=== PATIENT | male | born 1935 | race Hispanic/Latino ===

== ENCOUNTER 2018-03-16 17:15 | Observation (INO) | payer OTHER ==
[~2018-03-16] VITALS: Ht 175.3 cm; Wt 72.5 kg
[~2018-03-16 17:15] MED LIST: AMLO-128 PO; FENO145T37 PO; GLIM4TAB3 PO; LOVA40TA2 PO; OMEP20CA10 PO; SITA1TAB6 PO
[2018-03-16] MEDS ORDERED: ONDANSETRON HCL 4 MG/2 ML VIAL ONE (18:17)
[2018-03-16] MEDS ORDERED: MORPHINE SULFATE 4 MG/1ML SYG ONE (18:17)
[2018-03-16] MEDS ORDERED: SODIUM CHLORIDE 0.9% 1000ML 1,000 ML IV ONE ×3 (18:17→23:12)
[2018-03-16 18:26] LABS: BASOPHILS % (AUTO) 0.6 % (0.0-5.0); EOSINOPHILS % (AUTO) 0.4 % (0.0-8.0); LYMPHOCYTES % (AUTO) 9.9 % (21.0-51.0); MEAN CORPUSCULAR HEMOGLOBIN 30.3 pg (27.0-33.0); MEAN CORPUSCULAR HGB CONC 33.3 g/dL (32.0-36.0); MEAN CORPUSCULAR VOLUME 91.1 fL (79-99); MONOCYTES % (AUTO) 5.6 % (3.0-13.0); NEUTROPHILS % (AUTO) 83.5 % (40.0-77.0); PLATELET COUNT (AUTO) 193 K/uL (130-400); RED BLOOD CELL COUNT(AUTO) 5.38 MIL/uL (4.50-6.20); RED CELL DISTRIBUTION WIDTH 13.3 % (11.0-15.5); WHITE BLOOD COUNT (AUTO) 10.9 K/uL (4.8-10.8)
[2018-03-16] MEDS ORDERED: LIDOCAINE HCL 2% VISCOUS 15 ML UDCUP ONE (18:30)
[2018-03-16] MEDS ORDERED: MAG HYDROX/AL HYDROX/SIMETH ES 30 ML SUSP UDCUP ONE (18:30)
[2018-03-16 18:32] LABS: APPEARANCE,URINE Cloudy (CLEAR); BILIRUBIN,URINE Negative (NEGATIVE); COLOR,URINE Yellow (YELLOW); GLUCOSE, URINE (UA) >=1000 mg/dL (NEGATIVE); KETONES,URINE Trace mg/dL (NEGATIVE); LEUKOCYTE ESTERASE ,URINE Negative (NEGATIVE); NITRATE,URINE Negative (NEGATIVE); OCCULT BLOOD,URINE Negative (NEGATIVE); PROTEIN,URINE Negative (NEGATIVE)
[2018-03-16 18:42] LABS: ALBUMIN 4.1 g/dL (3.5-5.0); BILIRUBIN,TOTAL 2.3 mg/dL (0.2-1.0); CREATININE 1.8 mg/dL (0.5-1.5); POTASSIUM 4.6 mmol/L (3.5-5.1); TOTAL PROTEIN, SERUM 7.6 g/dL (6.0-8.3)
[2018-03-16 19:06] LABS: SQUAMOUS EPITHELIAL CELL,UR 30-50 /HPF (0-2)
[2018-03-16 19:07] LABS: HYALINE CASTS, URINE 0-1 /LPF (0-1 /LPF)
[2018-03-16 19:13] LABS: MUCUS,URINE Rare LPF (None Seen)
[2018-03-16 19:15] LABS: BACTERIA,URINE Few /HPF (None Seen)
[2018-03-16 19:16] LABS: RBC,URINE 0-1 /HPF (0-1); WBC,URINE 0-1 /HPF (0-1)
[2018-03-16] MEDS ORDERED: CEFTRIAXONE SODIUM 1 GM ONE (19:26)
[2018-03-16] MEDS ORDERED: INSULIN HUMULIN R 100 UNIT/ML 3ML ONE (19:27)
[2018-03-16] MEDS ORDERED: ONDANSETRON HCL 4 MG/2 ML VIAL IVP PRN (21:00)
[2018-03-16] MEDS: SODIUM CHLORIDE 0.9% 1000ML 1,000 ML IV SCH (21:00)
[2018-03-16] MEDS ORDERED: HYDRALAZINE HCL 20 MG/ML VIAL IV PRN (21:00)
[2018-03-16] MEDS ORDERED: LEVOFLOXACIN 500 MG/D5W 100 ML 100 ML IV ONE (21:00)
[2018-03-16] MEDS ORDERED: ACETAMINOPHEN 325 MG TAB PO PRN (21:00)
[2018-03-16] MEDS ORDERED: DIPHENOXYLATE HCL/ATROPINE 2.5/0.025 MG TAB PO PRN (21:00)
[2018-03-16] MEDS ORDERED: LEVOFLOXACIN 500 MG/D5W 100 ML 100 ML ONE (23:12)
--- NOTE | 2018-03-17 00:40 | NUR ---
Admission note: Report received from Sandy Peña RN. Admitted pt. to room per stretcher under the service of Dr. Decker. Placed in bed comfortably. Pt. fully awake and responsive. AOX3. Daughter stayed with the patient at bedside. Orientation to room and used of call light given. Also, policies and procedures explained. Verbalized understanding. VS checked and recorded. Assessment done. Denies feeling of discomfort. Pt. verbalized with a smile " i feel better now." Has an IVF NS 1L at 100 ml/hr to RAC with #20 gauge - patent and intact. Telemetry attached with NSR 70's. Orders carried out. Monitored and observed for any unusualities. Distress not noted.
[2018-03-17 00:46] VITALS: BP 131/70
[2018-03-17] MEDS: METRONIDAZOLE 500MG/100ML BAG 100 ML IVPB SCH ×4 (01:09→21:35)
[2018-03-17] MEDS ORDERED: CHOL200013 PO (01:51)
[2018-03-17] MEDS ORDERED: FINA5TAB41 PO (02:00)
[2018-03-17] MEDS ORDERED: DONE5TAB33 PO (02:00)
[2018-03-17] MEDS ORDERED: FLUT16H NS (02:00)
[2018-03-17] MEDS ORDERED: GLUCAGON 1MG KIT 1 MG ML IM PRN (02:15)
[2018-03-17] MEDS ORDERED: DEXTROSE 50%-WATER 50 ML DISP.SYRIN IV PRN (02:15)
[2018-03-17 03:22] VITALS: BP 107/53
[2018-03-17] MEDS: INSULIN HUMULIN R 100 UNIT/ML 3ML SQ SCH ×4 (06:14→21:41)
[2018-03-17 07:46] VITALS: BP 102/59
[2018-03-17] MEDS: FAMOTIDINE/PF 20 MG/2 ML VIAL IV SCH (10:10)
[2018-03-17] MEDS: ENOXAPARIN SODIUM 30 MG/0.3 ML SQ SCH (10:12)
[2018-03-17] MEDS: SODIUM CHLORIDE 0.9% 1000ML 1,000 ML IV SCH ×2 (10:13→17:00)
[2018-03-17 12:00] VITALS: BP 104/60
[2018-03-17] MEDS: FLUTICASONE PROPIONATE 50MCG/SPRAY 16 GM BOTTLE NS SCH ×2 (12:00→14:11)
--- NOTE | 2018-03-17 13:05 | NUR ---
DCP CM met with pt and spouse discussed dc plans. Pt is independent prior to admission, lives at home with spouse. Has a shower chair at home. Denies any other equipments/services. Offered possible short term placement, pt and spouse declined at this time, willing to reconsider if MD recommends and if it is necessary, prefers to go back home. Daughter able to assist with transportation and needs as necessary. Dc plan to home once stable. CM to cont to follow up. Addendum: 03/17/18 at 1307 by ANABELLE BLEDSOE LVN CM Amended: Links added.
--- NOTE | 2018-03-17 15:59 | NUR ---
Nutrition intervention: Nutrition notification for hyperglycemia and dehydration. Pt currently on clear liquid diet, advance as tolerated, Pt tolerating clear liquids. Pt with no nutrition concerns with n/v/d, chewing or swallowing difficulties. Pt's glucose at admission at 639. RD provided pt with printed materials on DM diet. Printed materials reviewed. Pt states he eats what he cans, financially, RD advised pt to stop drinking soda and juice. Recommendations: Advance diet to CCD 75gm as tolerated. Consult RD if additional nutrition concerns arise. Addendum: 03/17/18 at [address] RD Amended: Links added.
[2018-03-17 16:00] VITALS: BP 124/70
[2018-03-17 20:00] VITALS: BP 133/70
[2018-03-17] MEDS ORDERED: DONEPEZIL HCL 5 MG TAB PO SCH (21:00)
[2018-03-17] MEDS ORDERED: LEVOFLOXACIN 250 MG/D5W 50ML 50 ML IVPB SCH (21:00)
[2018-03-18] VITALS: BP 133/62
[2018-03-18] MEDS: SODIUM CHLORIDE 0.9% 1000ML 1,000 ML IV SCH (03:55)
[2018-03-18 04:00] VITALS: BP 143/77
[2018-03-18 04:51] LABS: HEMATOCRIT 39.4 % (42-54); MEAN CORPUSCULAR HEMOGLOBIN 30.8 pg (27.0-33.0); MEAN CORPUSCULAR HGB CONC 34.6 g/dL (32.0-36.0); MEAN CORPUSCULAR VOLUME 89.2 fL (79-99); NUCLEATED RED BLOOD CELLS 0.1 % (0.0-0.19); PLATELET COUNT (AUTO) 140 K/uL (130-400); RED BLOOD CELL COUNT(AUTO) 4.41 MIL/uL (4.50-6.20); RED CELL DISTRIBUTION WIDTH 13.4 % (11.0-15.5)
[2018-03-18 04:58] LABS: POTASSIUM 3.8 mmol/L (3.5-5.1)
[2018-03-18] MEDS: METRONIDAZOLE 500MG/100ML BAG 100 ML IVPB SCH ×2 (06:20→13:18)
[2018-03-18] MEDS: INSULIN HUMULIN R 100 UNIT/ML 3ML SQ SCH ×3 (06:23→16:30)
[2018-03-18 08:00] VITALS: BP 123/75
[2018-03-18] MEDS ORDERED: AMLODIPINE BESYLATE 5 MG TAB PO SCH (09:00)
[2018-03-18] MEDS ORDERED: FINASTERIDE 5 MG TABLET PO SCH (09:00)
[2018-03-18] MEDS ORDERED: ATORVASTATIN CALCIUM 10 MG TABLET PO SCH (09:00)
[2018-03-18] MEDS ORDERED: **HM** JANUMET 50-1000MG PO SCH (09:00)
[2018-03-18] MEDS ORDERED: [UNRECOGNIZED DRUG - OTHER] PO SCH (09:00)
[2018-03-18] MEDS: FAMOTIDINE/PF 20 MG/2 ML VIAL IV SCH (09:34)
[2018-03-18] MEDS: ENOXAPARIN SODIUM 30 MG/0.3 ML SQ SCH (09:35)
[2018-03-18 11:00] VITALS: BP 136/70
[2018-03-18 16:00] VITALS: BP 127/66
== END 2018-03-18 18:54 | disposition home or self-care (01) ==
LOC: EDH 17:15 → EDHIP 20:15 → 4CH 03-17
PROVIDERS: ADMIT Internal Medicine; ATTEND Internal Medicine
DX: E86.0 Dehydration (principal); E11.65 Type 2 diabetes mellitus with hyperglycemia; E78.5 Hyperlipidemia, unspecified; I10 Essential (primary) hypertension; K57.90 Diverticulosis of intestine, part unspecified, without perforation or abscess without bleeding; F03.90 Unspecified dementia, unspecified severity, without behavioral disturbance, psychotic disturbance, mood disturbance, and anxiety; Z77.098 Contact with and (suspected) exposure to other hazardous, chiefly nonmedicinal, chemicals; Z80.0 Family history of malignant neoplasm of digestive organs; Z90.49 Acquired absence of other specified parts of digestive tract
CPT/HCPCS: 36415 ×2; 71045; 74176; 80048; 80053; 81001; 82948 ×8; 83690; 85025; 85027; 87880; 93005; 96361 ×2; 96365; 96366 ×2; 96367; 96368; 96372 ×2; 96375; 96376; 99291; G0378 ×47; J0696; J1650 ×2; J1815 ×4; J1956 ×2; J2270; J2405; J3490 ×7; J7030 ×4

== ENCOUNTER → 2020-08-21 | Outpatient (CLI) | payer OTHER ==
[~2020-08-21] MED LIST changes: -AMLO-128 PO; +AMLO-97 PO; +CHOL200013 PO; +DONE5TAB33 PO; -FENO145T37 PO; +FINA5TAB41 PO; +FLUT16H NS; -GLIM4TAB3 PO; -OMEP20CA10 PO
== END | disposition home or self-care (01) ==
LOC: RAH 11:34
PROVIDERS: ATTEND Family Medicine
DX: M17.12 Unilateral primary osteoarthritis, left knee (principal); M11.262 Other chondrocalcinosis, left knee
CPT/HCPCS: 73562; 73590

== ENCOUNTER → 2022-06-10 | Outpatient (CLI) | payer OTHER ==
[~2022-06-10] MED LIST changes: +AMLO-142 PO; -AMLO-97 PO
== END | disposition home or self-care (01) ==
LOC: RAH 14:35
PROVIDERS: ATTEND Urology
DX: N28.1 Cyst of kidney, acquired (principal); R31.29 Other microscopic hematuria
CPT/HCPCS: 76770

== ENCOUNTER 2022-08-30 22:52 | Observation (INO) | payer OTHER ==
[~2022-08-30] VITALS: Ht 152.4 cm; Wt 75.4 kg
[2022-08-30 23:21] LABS: BASOPHILS % (AUTO) 0.5 % (0.0-5.0); EOSINOPHILS % (AUTO) 0.8 % (0.0-8.0); HEMATOCRIT 43.1 % (42-54); MEAN CORPUSCULAR HEMOGLOBIN 30.1 pg (27.0-33.0); MEAN CORPUSCULAR HGB CONC 33.6 g/dL (32.0-36.0); MEAN CORPUSCULAR VOLUME 89.6 fL (79-99); MONOCYTES % (AUTO) 7.1 % (3.0-13.0); PLATELET COUNT (AUTO) 153 K/uL (130-400); RED BLOOD CELL COUNT(AUTO) 4.81 MIL/uL (4.50-6.20); RED CELL DISTRIBUTION WIDTH 13.2 % (11.0-15.5); WHITE BLOOD COUNT (AUTO) 9.8 K/uL (4.8-10.8)
[2022-08-30] MEDS: NITROGLYCERIN 0.4 MG SL TAB SL PRN (23:31)
[2022-08-30 23:34] LABS: CREATININE 1.6 mg/dL (0.5-1.5); POTASSIUM 3.7 mmol/L (3.5-5.1)
[2022-08-30 23:36] LABS: INR 0.99 (0.85-1.15); PROTHROMBIN TIME 11.5 SEC (9.6-11.6)
[2022-08-30 23:37] LABS: PARTIAL THROMBOPLASTIN TIME 24.5 SEC (26.3-35.5)
[2022-08-30 23:39] LABS: MAGNESIUM 1.8 mg/dL (1.80-2.40); TOTAL PROTEIN, SERUM 7.4 g/dL (6.0-8.3)
[2022-08-31] MEDS: NITROGLYCERIN 0.4 MG SL TAB SL PRN ×2 (00:28→00:38)
[2022-08-31 00:33] LABS: APPEARANCE,URINE CLEAR (CLEAR); BILIRUBIN,URINE NEGATIVE (NEGATIVE); COLOR,URINE YELLOW (YELLOW); GLUCOSE, URINE (UA) 300 mg/dL (NEGATIVE); KETONES,URINE 10 mg/dL (NEGATIVE); LEUKOCYTE ESTERASE ,URINE NEGATIVE Leu/uL (NEGATIVE); NITRATE,URINE NEGATIVE (NEGATIVE); OCCULT BLOOD,URINE NEGATIVE (NEGATIVE); PROTEIN,URINE 10 mg/dL (NEGATIVE); UROBILINOGEN,URINE 0.2 mg/dL (0.2-1.0)
[2022-08-31 00:36] LABS: MUCUS,URINE RARE LPF (None Seen); RBC,URINE 0-1 /HPF (0-1); SQUAMOUS EPITHELIAL CELL,UR RARE /HPF (0-2); WBC,URINE 0-1 /HPF (0-1)
[2022-08-31] MEDS ORDERED: MORPHINE 2 MG SYG IVP ONE (01:30)
[2022-08-31] MEDS ORDERED: ENOXAPARIN SODIUM 80 MG/0.8 ML SQ ONE (01:30)
[2022-08-31] MEDS ORDERED: NITROGLYCERIN 1GM OINT 1 INCH/1GM TD ONE (01:30)
[2022-08-31] MEDS ORDERED: LABETALOL 20MG SYG IV PRN (02:00)
[2022-08-31] MEDS ORDERED: TEMAZEPAM 15 MG CAPSULE PO PRN (02:00)
[2022-08-31] MEDS ORDERED: MORPHINE 2 MG SYG IVP PRN (02:00)
[2022-08-31] MEDS: 0.9%NACL 1000ML 1,000 ML IV SCH ×8 (02:00→17:49)
[2022-08-31] MEDS ORDERED: ACETAMINOPHEN 650 MG SUPPOSITORY RC PRN (02:00)
[2022-08-31] MEDS ORDERED: CLONIDINE HCL 0.1 MG TABLET PO PRN (02:00)
[2022-08-31] MEDS ORDERED: HYDRALAZINE 20MG/ML VIAL IV PRN (02:00)
[2022-08-31] MEDS ORDERED: ONDANSETRON 4MG INJ IVP PRN (02:00)
[2022-08-31] MEDS ORDERED: ACETAMINOPHEN 325 MG TAB PO PRN (02:00)
[2022-08-31] MEDS: NITROGLYCERIN 1GM OINT 1 INCH/1GM TD SCH ×3 (02:46→17:48)
[2022-08-31 03:19] LABS: HEMATOCRIT 38.6 % (42-54); MEAN CORPUSCULAR HEMOGLOBIN 30.3 pg (27.0-33.0); MEAN CORPUSCULAR HGB CONC 33.9 g/dL (32.0-36.0); MEAN CORPUSCULAR VOLUME 89.4 fL (79-99); RED BLOOD CELL COUNT(AUTO) 4.32 MIL/uL (4.50-6.20); RED CELL DISTRIBUTION WIDTH 13.1 % (11.0-15.5); WHITE BLOOD COUNT (AUTO) 11.3 K/uL (4.8-10.8)
[2022-08-31 03:30] VITALS: BP 139/67
[2022-08-31 03:41] LABS: CREATININE 1.5 mg/dL (0.5-1.5); POTASSIUM 4.5 mmol/L (3.5-5.1)
[2022-08-31 03:53] LABS: MAGNESIUM 1.9 mg/dL (1.80-2.40); PHOSPHORUS 3.9 mg/dL (2.5-4.9)
[2022-08-31] MEDS ORDERED: OMEP20CA12 PO (04:29)
[2022-08-31] MEDS ORDERED: GABA-529 PO (04:29)
[2022-08-31] MEDS ORDERED: DOXA8TAB81 PO (04:29)
[2022-08-31] MEDS ORDERED: MAGN100T5 PO (04:29)
[2022-08-31] MEDS ORDERED: SITA1TAB6 PO (04:29)
[2022-08-31] MEDS ORDERED: DONE10TA43 PO (04:29)
[2022-08-31] MEDS ORDERED: MEMA5TAB42 PO (04:29)
[2022-08-31] MEDS ORDERED: ASPI-1197 PO (04:29)
[2022-08-31] MEDS ORDERED: MECO10005 PO (04:29)
[2022-08-31] MEDS ORDERED: GLIP5TAB11 PO (04:29)
[2022-08-31] MEDS: INSULIN HUMULIN R 100 UNIT/ML 3ML SQ SCH ×4 (07:30→20:58)
[2022-08-31 07:38] VITALS: BP 143/76
[2022-08-31] MEDS: ASPIRIN 81MG CHEW TAB PO SCH (08:53)
[2022-08-31] MEDS: PANTOPRAZOLE 40 MG TAB DR PO SCH (08:56)
[2022-08-31] MEDS: ENOXAPARIN SODIUM 30 MG/0.3 ML SQ SCH (08:57)
[2022-08-31] MEDS: ZOSYN 3.375GM +NS 50ML IVPB SCH ×2 (10:02→22:17)
[2022-08-31] MEDS ORDERED: IOHEXOL 350 MG/ML 100ML INFUS..BTL IV ONE (11:13)
[2022-08-31 12:00] VITALS: BP 124/65
[2022-08-31 16:20] VITALS: BP 114/65
[2022-08-31 20:01] VITALS: BP 133/62
[2022-08-31] MEDS: SIMVASTATIN 20 MG TABLET PO SCH (20:48)
[2022-08-31 23:15] VITALS: BP 104/45
[2022-09-01 01:31] LABS: CHOLESTEROL 124 mg/dL (<200); HDL CHOLESTEROL 39 mg/dL (29-71); LDL DIRECT 70 mg/dL (0-99); TRIGLYCERIDES 129 mg/dL (30-200)
[2022-09-01] MEDS: NITROGLYCERIN 1GM OINT 1 INCH/1GM TD SCH ×2 (02:15→10:00)
[2022-09-01 03:35] VITALS: BP 138/48
[2022-09-01 06:11] LABS: HEMATOCRIT 35.6 % (42-54); MEAN CORPUSCULAR HGB CONC 32.9 g/dL (32.0-36.0); MEAN CORPUSCULAR VOLUME 91.3 fL (79-99); RED BLOOD CELL COUNT(AUTO) 3.9 MIL/uL (4.50-6.20); RED CELL DISTRIBUTION WIDTH 13.3 % (11.0-15.5); WHITE BLOOD COUNT (AUTO) 5.8 K/uL (4.8-10.8)
[2022-09-01 06:37] LABS: CREATININE 1.2 mg/dL (0.5-1.5); POTASSIUM 4.2 mmol/L (3.5-5.1); THYROID STIMULATING HORMONE 3.22 uIU/mL (0.36-3.74); TOTAL PROTEIN, SERUM 5.7 g/dL (6.0-8.3)
[2022-09-01] MEDS: REGADENOSON 0.4 MG/5 ML PF SYG IVP SCH ×2 (07:00→10:06)
[2022-09-01] MEDS: INSULIN HUMULIN R 100 UNIT/ML 3ML SQ SCH ×4 (07:30→20:11)
[2022-09-01 07:42] VITALS: BP 106/50
[2022-09-01] MEDS: ASPIRIN 81MG CHEW TAB PO SCH (07:59)
[2022-09-01] MEDS: PANTOPRAZOLE 40 MG TAB DR PO SCH (08:00)
[2022-09-01] MEDS: ZOSYN 3.375GM +NS 50ML IVPB SCH ×2 (10:27→22:05)
[2022-09-01] MEDS: ENOXAPARIN SODIUM 30 MG/0.3 ML SQ SCH (10:28)
[2022-09-01 11:55] VITALS: BP 108/57
[2022-09-01 16:00] VITALS: BP 120/58
[2022-09-01 20:00] VITALS: BP 137/69
[2022-09-01] MEDS: 0.9%NACL 1000ML 1,000 ML IV SCH (20:10)
[2022-09-01] MEDS: SIMVASTATIN 20 MG TABLET PO SCH (20:12)
[2022-09-02] VITALS: BP 125/63
[2022-09-02 04:00] VITALS: BP 132/76
[2022-09-02 04:45] LABS: HEMATOCRIT 36.6 % (42-54); MEAN CORPUSCULAR HGB CONC 33.3 g/dL (32.0-36.0); MEAN CORPUSCULAR VOLUME 89.9 fL (79-99); RED BLOOD CELL COUNT(AUTO) 4.07 MIL/uL (4.50-6.20); RED CELL DISTRIBUTION WIDTH 13.1 % (11.0-15.5); WHITE BLOOD COUNT (AUTO) 5.9 K/uL (4.8-10.8)
[2022-09-02 05:15] LABS: CREATININE 1.1 mg/dL (0.5-1.5); MAGNESIUM 1.7 mg/dL (1.80-2.40); POTASSIUM 4.1 mmol/L (3.5-5.1)
[2022-09-02] MEDS: INSULIN HUMULIN R 100 UNIT/ML 3ML SQ SCH ×3 (06:15→16:30)
[2022-09-02 08:00] VITALS: BP 147/64
[2022-09-02] MEDS ORDERED: MAGNESIUM 2GM PREMIX 50ML 50 ML IV ONE (09:24)
[2022-09-02] MEDS: PANTOPRAZOLE 40 MG TAB DR PO SCH (09:30)
[2022-09-02] MEDS: ASPIRIN 81MG CHEW TAB PO SCH (09:30)
[2022-09-02] MEDS: ZOSYN 3.375GM +NS 50ML IVPB SCH (09:30)
[2022-09-02] MEDS: ENOXAPARIN SODIUM 30 MG/0.3 ML SQ SCH (09:31)
[2022-09-02 12:00] VITALS: BP 103/55
[2022-09-02] MEDS: 0.9%NACL 1000ML 1,000 ML IV SCH (13:21)
[2022-09-02 16:00] VITALS: BP 109/51
== END 2022-09-02 18:20 | disposition home or self-care (01) ==
LOC: EDH 22:52 → EDHIP 08-31 01:34 → 4BH 08-31 03:33
PROVIDERS: ADMIT Internal Medicine; ATTEND Internal Medicine
DX: I20.0 Unstable angina (principal); I12.9 Hypertensive chronic kidney disease with stage 1 through stage 4 chronic kidney disease, or unspecified chronic kidney disease; E11.22 Type 2 diabetes mellitus with diabetic chronic kidney disease; N18.9 Chronic kidney disease, unspecified; D63.1 Anemia in chronic kidney disease; N17.9 Acute kidney failure, unspecified; E11.65 Type 2 diabetes mellitus with hyperglycemia; E78.00 Pure hypercholesterolemia, unspecified; E87.21 Acute metabolic acidosis; E78.5 Hyperlipidemia, unspecified; F03.90 Unspecified dementia, unspecified severity, without behavioral disturbance, psychotic disturbance, mood disturbance, and anxiety; Z79.899 Other long term (current) drug therapy
CPT/HCPCS: 83735 ×3; 84484 ×4; 80053 ×2; 85025; 85610; 85730; 83605 ×3; 71045 ×2; 93005; 96372 ×3; 96361; 96365; 96366 ×5; 96375; 99285; 82550 ×3; 84100; 83874 ×3; 80048 ×2; 85027 ×3; 85378; 87040 ×4; 87077; 87186; 87880; 82948 ×11; 81001; 36415 ×4; 71270; 93970; 84145; 84443; 80061; 83880; 93017; 78452; 93306; 96368; G0378 ×60; J2270; J1650 ×4; J2543 ×5; Q9967; J2785; A9500 ×2; J3475; 96374

== ENCOUNTER 2024-07-12 17:18 | Emergency (ER) | payer OTHER ==
[~2024-07-12] VITALS: Ht 160 cm; Wt 71.7 kg
[~2024-07-12 17:18] MED LIST changes: +ASPI-1197 PO; -CHOL200013 PO; +DONE10TA43 PO; -DONE5TAB33 PO; +DOXA8TAB81 PO; -FLUT16H NS; +GABA-529 PO; +GLIP5TAB15 PO; +MAGN100T5 PO; +MECO10005 PO; +MEMA5TAB16 PO; +OMEP20CA12 PO
--- NOTE | 2024-07-12 17:53 | EKG ---
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
[2024-07-12 17:59] LABS: BASOPHILS # (AUTO) 0.06 K/uL (0.00-0.20); BASOPHILS % (AUTO) 0.5 % (0.0-5.0); EOSINOPHILS # (AUTO) 0.19 K/uL (0.00-0.70); EOSINOPHILS % (AUTO) 1.7 % (0.0-8.0); HEMATOCRIT 42.9 % (42-54); IMMATURE GRANULOCYTE ABSOLUTE 0.06 K/uL (0-1); LYMPHOCYTES # (AUTO) 2.3 K/uL (1.0-4.8); LYMPHOCYTES % (AUTO) 20.4 % (21.0-51.0); MEAN CORPUSCULAR HEMOGLOBIN 30.6 pg (27.0-33.0); MEAN CORPUSCULAR HGB CONC 33.8 g/dL (32.0-36.0); MEAN CORPUSCULAR VOLUME 90.5 fL (79-99); MONOCYTES # (AUTO) 0.7 K/uL (0.1-1.0); MONOCYTES % (AUTO) 5.7 % (3.0-13.0); NEUTROPHILS # (AUTO) 8.2 K/uL (1.8-7.7); NEUTROPHILS % (AUTO) 71.2 % (40.0-77.0); PLATELET COUNT (AUTO) 186 K/uL (130-400); RED BLOOD CELL COUNT(AUTO) 4.74 MIL/uL (4.50-6.20); RED CELL DISTRIBUTION WIDTH 13.7 % (11.0-15.5); WHITE BLOOD COUNT (AUTO) 11.4 K/uL (4.8-10.8)
[2024-07-12 18:17] LABS: CREATININE 1.2 mg/dL (0.5-1.3); POTASSIUM 4.2 mmol/L (3.5-5.1)
--- NOTE | 2024-07-12 18:31 | HMCIMG ---
Exam Type: CT HEAD/BRAIN W/O CONTRAST Clinical Information: leg weakness Comparison: None CT Dose Index (CTDI): 57.33 mGy Dose Length Product (DLP): 956.79 total mGy-cm Findings: The examination shows atrophy. There is low attenuation throughout the periventricular white matter locations, consistent with chronic small vessel ischemic changes. No acute intra- or extra-axial fluid collections are seen. There is no evidence of acute or chronic hemorrhage. There is no mass effect or shift of midline structures. There are no areas to suggest acute infarct. The skull windows show no significant abnormalities. IMPRESSION: 1. ATROPHY AND CHRONIC SMALL VESSEL ISCHEMIC CHANGES. This study was performed using dose reduction techniques to include automated exposure control and/or adjustment of the mA and/or kV according to patient size.
[2024-07-12 19:00] LABS: APPEARANCE,URINE CLOUDY (CLEAR); BILIRUBIN,URINE NEGATIVE (NEGATIVE); COLOR,URINE YELLOW (YELLOW); GLUCOSE, URINE (UA) NEGATIVE (NEGATIVE); KETONES,URINE NEGATIVE (NEGATIVE); LEUKOCYTE ESTERASE ,URINE 250 Leu/uL (NEGATIVE); NITRATE,URINE NEGATIVE (NEGATIVE); PROTEIN,URINE NEGATIVE (NEGATIVE)
[2024-07-12 19:01] LABS: ADD UA MICROSCOPIC YES
[2024-07-12 19:04] LABS: BACTERIA,URINE FEW /HPF (None Seen); MUCUS,URINE RARE LPF (None Seen); SQUAMOUS EPITHELIAL CELL,UR RARE /HPF (0-2); UNCLASSIFIED CRYSTAL 2 /HPF (None Seen)
[2024-07-12] MEDS ORDERED: cefTRIAXone 1G VIAL IVPB STA (20:55)
--- NOTE | 2024-07-12 21:00 | ERN ---
ED Note History of Present Illness Stated Complaint: LLE LIMPING AND LT ARM WEAKNESS Chief Complaint: Weakness Time Seen by MD: 17:38 Time Seen by Midlevel: 17:40 Dictation: 89-year-old male with a history of hypertension, diabetes and cholesterol brought by daughter for complaints of limping. Daughter states he has been in bed all day at 2:00 p.m. she took him to the bank and noticed that he was limping. However patient does use a cane on a daily to assistance with ambulation. Denies any dizziness, slurred speech, weakness. Patient does not have any complaints. Allergies: Coded Allergies: No Known Allergies (Verified Allergy, Unknown, 03/16/18) Home Meds Reported Medications Magnesium Amino Acid Chelate (Magnesium) 100 Mg Tablet, 100 MG PO DAILY, TAB 08/31/22 Mecobalamin (B12 Active) 1,000 Mcg Tab.chew, 1000 MCG PO DAILY, TAB.CHEW 08/31/22 Aspirin (Aspirin) 81 Mg Tab.chew, 81 MG PO HS, TAB.CHEW 08/31/22 Glipizide (Glipizide) 5 Mg Tablet, 5 MG PO DAILYBKFST, TAB 08/31/22 Donepezil HCl (Donepezil HCl) 10 Mg Tablet, 10 MG PO HS, TAB 08/31/22 Gabapentin (Gabapentin) 100 Mg Capsule, 100 MG PO HS, CAP 08/31/22 Doxazosin Mesylate (Doxazosin Mesylate) 8 Mg Tablet, 8 MG PO HS, TAB 08/31/22 Memantine HCl (Memantine HCl) 5 Mg Tablet, 5 MG PO BID, TAB 08/31/22 Omeprazole (Omeprazole) 20 Mg Capsule.dr, 20 MG PO HS, CAP 08/31/22 Sitagliptin Phos/Metformin HCl (Janumet 50-1,000 mg Tablet) 1 Each Tablet, 1 EACH PO DAILY, TAB 08/31/22 Finasteride (Finasteride) 5 Mg Tablet, 5 MG PO DAILY, TAB 03/17/18 Amlodipine Besylate/Benazepril (Amlodipine-Benazepril 10-40 mg) 1 Each Capsule, 5-40 MG PO DAILY, CAP 04/16/15 Lovastatin (Lovastatin) 40 Mg Tablet, 40 MG PO DAILY, TAB 04/16/15 Past Medical History Past Medical History: Dementia, Diabetes-Type II, High Cholesterol, Hypertension Surgical History: Other Surgical History Other: BACK Review of System Dictation Constitutional: Negative for fever,chills, and weight loss Eyes: Negative for injury, pain,redness, and discharge ENT: Negative for injury,pain or swelling Cardiovascular: Negative for chest pain, palpitations, and edema Respiratory: Negative for shortness of breath, cough, and wheezing, Abdomen/GI: Negative for abdominal pain, nausea, vomiting, diarrhea, and constipation Back: Negative for injury and pain : Negative for injury, bleeding and discharge MS/Extremity: Negative for injury and deformity Skin: Negative for rash, and discoloration Neuro: Negative for headache, weakness, numbness, tingling, and seizure Psych: Negative for suicide ideation, homicidal ideation, and hallucinations Review of Systems: was completed Initial Vital Sign VS Vital Signs Date Time Temp Pulse Resp B/P (MAP) Pulse Ox O2 Delivery O2 Flow Rate FiO2 07/12/24 17:29 98.6 65 20 152/73 99 Room Air 0 07/12/24 18:33 21 Physical Exam Dictation General: awake, alert, NAD Head/Face: Normocephalic, atraumatic Eyes: PERRL, EOMI, vision at baseline ENT: oral cavity clear, TMs clear, no signs of infection Neck: Trachea midline, supple, no nuchal rigidity Cardiovascular: RRR, normal S1/S2, No MRGs, no JVD Respiratory: CTAB, no respiratory distress, No rales or wheezes Abdomen: Soft, non-tender, non-distended, normal bowel sounds, no guarding or rebound. Skin: Warm, dry, normal turgor, no rash MS/Extremity: Pulses equal, no cyanosis, neurovascular intact, FROM Neuro: COAx4, GCS 15, strength 5/5, CN 2-12 intact, normal cerebellar exam, normal gait, Psych: Normal behavior, mood, and affect normal Results (Laboratory/Radiology) Laboratory/Radiology Laboratory Tests Test 07/12/24 17:49 07/12/24 18:40 White Blood Count 11.4 K/uL (4.8-10.8) H Red Blood Count 4.74 MIL/uL (4.50-6.20) Hemoglobin 14.5 g/dL (14.0-18.0) Hematocrit 42.9 % (42-54) Mean Corpuscular Volume 90.5 fL (79-99) Mean Corpuscular Hemoglobin 30.6 pg (27.0-33.0) Mean Corpuscular Hemoglobin Concent 33.8 g/dL (32.0-36.0) Red Cell Distribution Width 13.7 % (11.0-15.5) Platelet Count 186 K/uL (130-400) Mean Platelet Volume 9.8 fL (7.5-10.5) Immature Granulocyte % (Auto) 0.5 % (0-1) Neutrophils (%) (Auto) 71.2 % (40.0-77.0) Lymphocytes (%) (Auto) 20.4 % (21.0-51.0) L Monocytes (%) (Auto) 5.7 % (3.0-13.0) Eosinophils (%) (Auto) 1.7 % (0.0-8.0) Basophils (%) (Auto) 0.5 % (0.0-5.0) Neutrophils # (Auto) 8.2 K/uL (1.8-7.7) H Lymphocytes # (Auto) 2.3 K/uL (1.0-4.8) Monocytes # (Auto) 0.7 K/uL (0.1-1.0) Eosinophils # (Auto) 0.19 K/uL (0.00-0.70) Basophils # (Auto) 0.06 K/uL (0.00-0.20) Absolute Immature Granulocyte (auto 0.06 K/uL (0-1) Nucleated Red Blood Cells 0.0 % (0.0-0.19) Sodium Level 143 mmol/L (136-145) Potassium Level 4.2 mmol/L (3.5-5.1) Chloride Level 107 mmol/L (101-111) Carbon Dioxide Level 26 mmol/L (21-32) Blood Urea Nitrogen 27 mg/dL (7-18) H Creatinine 1.2 mg/dL (0.5-1.3) Glomerular Filtration Rate Calc 58 mL/min (>90) Random Glucose 156 mg/dL (70-105) H Total Calcium 9.0 mg/dL (8.5-10.1) Troponin I High Sensitivity 4 ng/L (4-75) Urine Color YELLOW (YELLOW) Urine Appearance CLOUDY (CLEAR) H Urine pH 5.0 (5.0-8.0) Urine Specific [place] 1.022 (1.001-1.031) Urine Protein NEGATIVE mg/dL (NEGATIVE) Urine Glucose (UA) NEGATIVE mg/dL (NEGATIVE) Urine Ketones NEGATIVE mg/dL (NEGATIVE) Urine Occult Blood +- (TRACE) (NEGATIVE) H Urine Nitrate NEGATIVE (NEGATIVE) Urine Bilirubin NEGATIVE mg/dL (NEGATIVE) Urine Urobilinogen 2.0 mg/dL (0.2-1.0) H Urine Leukocyte Esterase 250 Daisy/uL (NEGATIVE) H Urine RBC 2-5 /HPF (0-1) H Urine WBC 11-25 /HPF (0-1) H Urine Squamous Epithelial Cells RARE /HPF (0-2) Urine Other Crystals (Auto) 2 /HPF (None Seen) Urine Bacteria FEW /HPF (None Seen) Labs Reviewed?: Yes EKG Comment: EKGs done at 5:50 p.m., sinus rhythm at a rate of 64 beats per minute. Prolonged CO interval. STEMI interpreted by ER MD CT Scan Comment: [address] [id number] IMAGING REPORT Signed PATIENT: BRET ROMERO MR#: [id number] : 1935 SEX: M AGE: 89 LOCATION: [facility] ORDER 40 STATUS: REG ER REPORT#: [id number] SERVICE 39 REASON: leg weakness ORDERING PHYSICIAN: DELONTE SHAFFER NP PROCEDURE: HEAD WO - CT HEAD/BRAIN W/O CONTRAST Exam Type: CT HEAD/BRAIN W/O CONTRAST Clinical Information: leg weakness Comparison: None CT Dose Index (CTDI): 57.33 mGy Dose Length Product (DLP): 956.79 total mGy-cm Findings: The examination shows atrophy. There is low attenuation throughout the periventricular white matter locations, consistent with chronic small vessel ischemic changes. No acute intra- or extra-axial fluid collections are seen. There is no evidence of acute or chronic hemorrhage. There is no mass effect or shift of midline structures. There are no areas to suggest acute infarct. The skull windows show no significant abnormalities. IMPRESSION: 1. ATROPHY AND CHRONIC SMALL VESSEL ISCHEMIC CHANGES. This study was performed using dose reduction techniques to include automated exposure control and/or adjustment of the mA and/or kV according to patient size. DICTATED BY: CHRISTINA JOYCE MD DATE: 07/12/241825 ELECTRONICALLY SIGNED BY: CHRISTINA JOYCE MD DATE: 07/12/241830 ED Course ED Course Orders Procedure Category Date Status Time Cbc With Differential LAB 07/12/24 Complete 17:40 Basic Metabolic Panel LAB 07/12/24 Complete 17:40 Troponin I High LAB 07/12/24 Complete Sensitivity 17:40 12 Lead Ekg Tracing- EKG 07/12/24 Complete Technical 17:40 Urinalysis Profile LAB 07/12/24 Complete 17:40 Ct Head/Brain W/O CT 07/12/24 Resulted Contrast 17:40 Culture Urine CELSO 07/12/24 In Process 19:01 Ceftriaxone 1g Vial PHA 07/12/24 Complete (Rocephine 1g Inj) 20:55 Current Medications Medications (Trade) Dose Ordered Sig/Earlene Route PRN Reason Start Time Stop Time Status Last Admin Dose Admin Ceftriaxone Sodium (ROCEphine 1G INJ) 1 gm ONCE STAT IVPB 07/12/24 20:55 07/12/24 20:57 DC Vital Signs Date Time Temp Pulse Resp B/P (MAP) Pulse Ox O2 Delivery O2 Flow Rate FiO2 07/12/24 19:44 98.2 60 18 126/66 98 Room Air* 0 21 07/12/24 18:33 98.1 57 16 117/63 99 Room Air* 0 21 07/12/24 17:29 98.6 65 20 152/73 99 Room Air 0 Medical Decision Making MDM 89-year-old male with a history of hypertension, diabetes and cholesterol brought by daughter for complaints of limping. Daughter states he has been in bed all day at 2:00 p.m. she took him to the bank and noticed that he was limping. However patient does use a cane on a daily to assistance with ambulation. Denies any dizziness, slurred speech, weakness. Patient does not have any complaints. Upon triage patient has not NIH of 0. As per daughter the limping and has resolved. At 10:00 p.m. on July 12, 2024 patient care was transitioned to YARY Mcclelland. The patient was reassessed at 10:00 p.m.. Repeat neurological examination is unremarkable. The patient has a GCS of 15 with an NIH stroke scale of 0. At this time the patient had already been evaluated by tele neurologist. At this time we are pending official note/recommendations from the tele neurologist. I discussed lab and imaging findings with the patient. According to both the patient and the patient's daughter who is at bedside the patient was back to his baseline. They had initially presented to the emergency department after the patient's daughter noticed the patient dragging his left leg more than usual. At baseline the patient uses a cane for support. The patient's daughter also noticed an increase in fidgeting to the left hand which concerned her so she decided to call her primary care doctor who advised she report to the ER to rule out a stroke. When the patient arrived his symptoms have completely resolved. The initial NIH stroke scale was 0 however a stroke workup was initiated. CT scan of the head does not show any acute intracranial abnormalities. Labs are stable. Repeat examination is unremarkable. I did discuss with both the patient and the patient's daughter that we are pending the report because the patient most likely needs to be admitted for a TIA workup however they would like to be discharged home and do not want to be admitted. The patient states he feels completely normal and does not want to stay in the hospital overnight. I did discussed that his symptoms could be signs of a TIA he understands this and would like to be discharged home. The patient understands all risks. I did give him strict return precautions. I also spoke to the patient's daughter who is comfortable taking the patient home. The patient's daughter lives with him and we will be monitoring him over the next24 hours. She states she will follow up outpatient as needed. DX & DISP Disposition: Discharge Departure Impression: Primary Impression: Left-sided weakness Additional Impression: Urinary tract infection Condition: Stable Scripts Nitrofurantoin/Nitrofuran Mac (Macrobid) 100 Mg Cap 1 CAP PO BID for 7 Days, #14 CAP 0 Refills Prov: KARLOS MCCLELLAND 07/12/24 Additional Instructions: Your blood work today is stable. Your urinalysis is consistent with infection. I have provided a prescription for oral antibiotics for outpatient management. CT scan of the head does not show any acute changes. You were evaluated by a tele neurologist. My recommendation was admission to the hospital for a full TIA workup/MRI of the brain however you decided that you did not want to spend the night in the hospital. I did discussed strict return precautions. If you develop any new weakness on either side of the body please report to the ER for further evaluation. Follow up with your primary care doctor. They may refer you to a neurologist for outpatient evaluation. Referrals: ANIRUDH MORALES MD (PCP) Time of Disposition: 22:05 I have reviewed the case, and I agree with, Diagnosis and Plan I performed the substantive portion of the visit. I have reviewed and personally made and approve the management plan that is documented in the note by myself or the NAJMA. I acknowledge for responsibility for the patient's management plan. DELONTE SHAFFER NP July 12, 2024 21:00 KARLOS MCCLELLAND July 12, 2024 22:09
[2024-07-12] MEDS ORDERED: MACR100 PO (22:06)
[2024-07-12] MEDS: cefTRIAXone 1G VIAL IM ONE (22:25)
--- NOTE | 2024-07-12 22:27 | NUR ---
PATIENT WANTING TO BE D/C AT THIS TIME; ED PROVIDER AT BEDSIDE AND ED RN; PATIENT AND FAMILY MEMBER WERE REINFORCED BY BOTH ED PROVIDER AND ED RN THE RECCOMENDATION FOR FURTHER WORKUP AND EVALUATION; PATIENT ALSO NOTIFIED OF PENDING SOC REPORT AND PATIENT DOES NOT WISH TO WAIT FOR RESULTS. PATIENT UNDERSTANDS RISK AND CONCEQUENCES. PATIENT FAMILY MEMBER STATES UNDERSTANDING WELL; PATIENT WAS REINFOCRCED TO CALL 911 OR RETURN TO NEAREST ED FOR NEW, WORSENING OR RETURN OF SIGNS AND SYMPTOMS. PATIENT STATES UNDERSTANDING.
[2024-07-12 22:30] VITALS: BP 118/72; PULSE 62; RESP 19; TEMP 98.5; O2SAT 99
== END 2024-07-12 22:35 | disposition home or self-care (01) ==
LOC: EDH 17:18
DX: R53.1 Weakness (principal); N39.0 Urinary tract infection, site not specified; E11.9 Type 2 diabetes mellitus without complications; E78.00 Pure hypercholesterolemia, unspecified; I10 Essential (primary) hypertension; Z79.82 Long term (current) use of aspirin; Z79.84 Long term (current) use of oral hypoglycemic drugs; Z79.899 Other long term (current) drug therapy
CPT/HCPCS: 99285; 70450; 84484; 80048; 85025; 87086 ×2; 87186; 81001; 36415; 96372; 93005; J0696